=== PATIENT | female | born 1955 | race Caucasian/White ===

== ENCOUNTER 2021-11-04 12:17 | Emergency (ER) | payer MEDICARE ==
[~2021-11-04] VITALS: Ht 160 cm; Wt 84.8 kg
[2021-11-04 15:10] VITALS: BP 179/78
[2021-11-04] MEDS ORDERED: TRAMADOL HCL50 MG PO (15:48)
== END 2021-11-04 16:10 | disposition home or self-care (01) ==
LOC: ED 12:17
DX: S63.92XA Sprain of unspecified part of left wrist and hand, initial encounter (principal); W01.0XXA Fall on same level from slipping, tripping and stumbling without subsequent striking against object, initial encounter; Y92.89 Other specified places as the place of occurrence of the external cause; Y99.0 Civilian activity done for income or pay